=== PATIENT | male | born 1935 | race Caucasian/White ===

== ENCOUNTER 2018-05-23 12:03 | Inpatient (IN) ==
[2018-05-23 12:43] LABS: Baso # (Auto) 0.1 th/mm3 (0.0-0.2); Baso % (Auto) 0.5 % (0.0-2.0); Eos # (Auto) 0.1 th/mm3 (0.0-0.4); Eos % (Auto) 0.3 % (0.0-4.0); Hematocrit 44.6 % (39.0-51.0); Hemoglobin 14.6 gm/dL (13.0-17.0); Lymph # (Auto) 14.8 th/mm3 (1.0-4.8); Lymph % (Auto) 66.2 % (9.0-44.0); Mean Corpuscular HGB Conc 32.6 % (32.0-36.0); Mean Corpuscular Hemoglobin 28.9 pg (27.0-34.0); Mean Corpuscular Volume 88.7 fL (80.0-100.0); Mean Platelet Volume 8.6 fL (7.0-11.0); Mono # (Auto) 0.8 th/mm3 (0.0-0.9); Mono % (Auto) 3.4 % (0.0-8.0); Neut # (Auto) 6.6 th/mm3 (1.8-7.7); Neut % (Auto) 29.6 % (16.0-70.0); Platelet Count 226 th/mm3 (150-450); Red Blood Count 5.03 mil/mm3 (4.50-5.90); Red Cell Distribution Width 13.7 % (11.6-17.2); White Blood Count 22.4 th/mm3 (4.0-11.0)
[2018-05-23 12:58] LABS: Alanine Aminotransferase 29 U/L (12-78); Albumin 4.2 g/dL (3.4-5.0); Anion Gap 8 meq/L (5-15); Aspartate Aminotransferase 21 U/L (15-37); Blood Urea Nitrogen 15 mg/dL (7-18); Calcium 9.2 mg/dL (8.5-10.1); Carbon Dioxide 26.3 meq/L (21.0-32.0); Chloride 109 meq/L (98-107); Glomerular Filtration Rate 57 mL/min (>89); Glucose,Random 122 mg/dL (74-106); Potassium 4.2 meq/L (3.5-5.1); Sodium 143 meq/L (136-145)
[2018-05-23 13:09] LABS: Alkaline Phosphatase 73 U/L (45-117); Total Protein 7.1 g/dL (6.4-8.2)
[2018-05-23 13:14] LABS: Creatine Kinase 91 U/L (39-308)
[2018-05-23 13:15] LABS: Lymphocytes 76 % (9-44); Monocytes 2 % (0-8); Platelet Estimate Normal (Normal); Platelet Morphology Normal (Normal)
--- NOTE | 2018-05-23 13:26 | ED ---
HPI General Chief Complaint: Psychiatric Symptoms Stated Complaint: Psych Screen Time Seen by Provider: 05/23/18 12:30 Source: patient and police Mode of arrival: ambulatory Limitations: other ([place]'s dementia) History of Present Illness HPI Narrative: Patient is an 82-year-old male presenting to the emergency department under Hopper act for psychiatric evaluation. Patient left his assisted living memory unit this morning walked approximately 4 miles to his home that he used to live in with his . Patient stated that he was fed up with the assisted living, he states that although they give him good care he does not want to be there. He then admitted to police liaison that he did not want to live like that. Patient denies any suicidality now, he denies any previous suicide attempt. Patient has no physical complaints on arrival. MD complaint: suicidal ideation Onset (ago): hour(s) Duration: resolved prior to arrival Associated symptoms: denies other symptoms Related Data Allergies Allergy/AdvReac Type Severity Reaction Status Date / Time No Known Allergies Allergy Unverified 05/23/18 12:13 Review of Systems Except as stated in HPI: all other systems reviewed are negative PMFSH History History Provided By: Patient Medical History Medical History Alzheimer's dementia (Chronic) Social History Social History Substance History: Unable to Obtain Second Hand Smoke Exposure: No Smoking Status: Cognitive impairment How Often Do You Have a Drink Containing Alcohol: Unable to Obtain (Per patient 's daughter he may have a beer or 2 daily) Recent Travel in [facility] within the Last 8 Weeks: No Recent Out of Country Travel within the Last 8 Weeks: No Exam Narrative Exam Narrative: GENERAL: Well-developed, well-nourished, alert elderly gentleman. Presenting in no acute distress. SKIN: Focused skin assessment warm/dry. HEAD: Atraumatic. Normocephalic. EYES: Pupils equal and round. No scleral icterus. No injection or drainage. ENT: No nasal bleeding or discharge. Mucous membranes pink and moist. NECK: Trachea midline. No JVD. CARDIOVASCULAR: Mildly tachycardic. No murmur appreciated. RESPIRATORY: No accessory muscle use. Clear to auscultation. Breath sounds equal bilaterally. GASTROINTESTINAL: Abdomen soft, non-tender, nondistended. Hepatic and splenic margins not palpable. MUSCULOSKELETAL: No obvious deformities. No clubbing. No cyanosis. No edema. NEUROLOGICAL: Awake and alert, oriented 3. No obvious cranial nerve deficits. Motor grossly within normal limits. Normal speech. PSYCHIATRIC: Appropriate mood and affect; insight and judgment impaired. Course Initial Documented Vital Signs Temperature 99 F 05/23/18 14:26 Pulse Rate 92 H 05/23/18 14:26 Respiratory Rate 16 05/23/18 14:26 Blood Pressure 157/62 H 05/23/18 14:26 Pulse Oximetry 99 05/23/18 14:26 Last Documented Vital Signs Temperature 98.7 F 05/24/18 06:29 Pulse Rate 87 05/24/18 06:29 Respiratory Rate 18 05/24/18 06:29 Blood Pressure 151/80 H 05/24/18 06:29 Pulse Oximetry 95 05/24/18 06:29 Medical Decision Making MDM Narrative Medical decision making narrative: Patient is an 82-year-old male under Hopper act for psychiatric eval. secondary to making suicidal statement. Mental health screening discussed with the patient. Psychiatric screen ordered. Urinalysis is consistent with a urinary tract infection, patient be treated with Macrobid, urine culture is pending. Patient's white blood cell count of 22.4 he is afebrile. Patient was given first dose of antibiotics now. Patient is medically cleared for psychiatric evaluation. Differential Diagnosis Differential Diagnosis: Dementia versus mood disorder versus UTI versus metabolic abnormality versus other Lab Data Result diagrams: 05/23/18 12:15 05/24/18 10:00 Lab Results 05/23/18 05/23/18 05/23/18 Range/Units 12:15 12:15 15:54 WBC 22.4 H (4.0-11.0) th/mm3 RBC 5.03 (4.50-5.90) mil/mm3 Hgb 14.6 (13.0-17.0) gm/dL Hct 44.6 (39.0-51.0) % MCV 88.7 (80.0-100.0) fL MCH 28.9 (27.0-34.0) pg MCHC 32.6 (32.0-36.0) % RDW 13.7 (11.6-17.2) % Plt Count 226 (150-450) th/mm3 MPV 8.6 (7.0-11.0) fL Prelim Diff (Auto) Slide review pending Neut % (Auto) 29.6 (16.0-70.0) % Lymph % (Auto) 66.2 H (9.0-44.0) % Desha % (Auto) 3.4 (0.0-8.0) % Eos % (Auto) 0.3 (0.0-4.0) % Baso % (Auto) 0.5 (0.0-2.0) % Neut # (Auto) 6.6 (1.8-7.7) th/mm3 Lymph # (Auto) 14.8 H (1.0-4.8) th/mm3 Desha # (Auto) 0.8 (0.0-0.9) th/mm3 Eos # (Auto) 0.1 (0.0-0.4) th/mm3 Baso # (Auto) 0.1 (0.0-0.2) th/mm3 WBC Differential Manual diff final Seg Neuts % (Manual) 19 (16-70) % Band Neuts % (Manual) 3 (0-6) % Lymphocytes % (Manual) 76 H (9-44) % Monocytes % (Manual) 2 (0-8) % Abs Neuts (Manual) 4.9 (1.8-7.7) th/mm3 Differential Comment . Platelet Estimate Normal (Normal) Platelet Morphology Normal (Normal) Hemoglobin A (95.8-98.0) % Hemoglobin A2 (2.0-3.3) % Hemoglobin F () (0.0-0.9) % Hgb A2/F Interpret Hemoglobin Variant 2 Hemoglobin Variant 3 Hemoglobin Variant % Sodium 143 (136-145) meq/L Potassium 4.2 (3.5-5.1) meq/L Chloride 109 H (98-107) meq/L Carbon Dioxide 26.3 (21.0-32.0) meq/L Anion Gap 8 (5-15) meq/L BUN 15 (7-18) mg/dL Creatinine 1.23 (0.60-1.30) mg/dL Estimated GFR 57 L (>89) mL/min Random Glucose 122 H (74-106) mg/dL Calcium 9.2 (8.5-10.1) mg/dL Total Bilirubin 0.8 (0.2-1.0) mg/dL AST 21 (15-37) U/L ALT 29 (12-78) U/L Alkaline Phosphatase 73 (45-117) U/L Total Creatine Kinase 91 (39-308) U/L Total Protein 7.1 (6.4-8.2) g/dL Albumin 4.2 (3.4-5.0) g/dL Triglycerides (42-150) mg/dL Cholesterol (120-200) mg/dL LDL Cholesterol, Calc (0-99) mg/dL HDL Cholesterol (40.0-60.0) mg/dL Cholesterol/HDL Ratio Ratio TSH 3.240 (0.358-3.740) uIU/mL Urine Color Kimberly (Yellw/Straw) Urine Clarity Cloudy H (Clear) Urine pH 5.0 (5.0-8.5) Ur Specific [place] 1.025 (1.002-1.035) Urine Protein 100 H (Neg-Trace) mg/dL Urine Glucose (UA) 50 (Negative) mg/dL Urine Ketones Trace (Negative) mg/dL Urine Occult Blood Small H (Negative) Urine Nitrate Negative (Negative) Urine Bilirubin Negative (Negative) Urine Urobilinogen 2.0 H (Less than 2) mg/dL Ur Leukocyte Esterase Negative (Negative) Urine RBC 22 H (0-3) /hpf Urine WBC 10 H (0-5) /hpf Amorphous Sediment Few H (None) /hpf Urine Bacteria Few H (None) /hpf Hyaline Casts 86 (0-3) /lpf Urine Mucus Many H (Occasional) /lpf Micro UA Comment Culture indicated Urine Culture Comments Culture indicated 05/24/18 05/24/18 Range/Units 10:00 10:00 WBC (4.0-11.0) th/mm3 RBC (4.50-5.90) mil/mm3 Hgb (13.0-17.0) gm/dL Hct (39.0-51.0) % MCV (80.0-100.0) fL MCH (27.0-34.0) pg MCHC (32.0-36.0) % RDW (11.6-17.2) % Plt Count (150-450) th/mm3 MPV (7.0-11.0) fL Prelim Diff (Auto) Neut % (Auto) (16.0-70.0) % Lymph % (Auto) (9.0-44.0) % Desha % (Auto) (0.0-8.0) % Eos % (Auto) (0.0-4.0) % Baso % (Auto) (0.0-2.0) % Neut # (Auto) (1.8-7.7) th/mm3 Lymph # (Auto) (1.0-4.8) th/mm3 Desha # (Auto) (0.0-0.9) th/mm3 Eos # (Auto) (0.0-0.4) th/mm3 Baso # (Auto) (0.0-0.2) th/mm3 WBC Differential Seg Neuts % (Manual) (16-70) % Band Neuts % (Manual) (0-6) % Lymphocytes % (Manual) (9-44) % Monocytes % (Manual) (0-8) % Abs Neuts (Manual) (1.8-7.7) th/mm3 Differential Comment Platelet Estimate (Normal) Platelet Morphology (Normal) Hemoglobin A 97.3 (95.8-98.0) % Hemoglobin A2 2.7 (2.0-3.3) % Hemoglobin F () 0.0 (0.0-0.9) % Hgb A2/F Interpret . Hemoglobin Variant 2 Not Reportable Hemoglobin Variant 3 Not Reportable Hemoglobin Variant % Not Reportable Sodium 141 (136-145) meq/L Potassium 4.2 (3.5-5.1) meq/L Chloride 107 (98-107) meq/L Carbon Dioxide 27.1 (21.0-32.0) meq/L Anion Gap 7 (5-15) meq/L BUN 22 H (7-18) mg/dL Creatinine 0.97 (0.60-1.30) mg/dL Estimated GFR 74 L (>89) mL/min Random Glucose 118 H (74-106) mg/dL Calcium 9.0 (8.5-10.1) mg/dL Total Bilirubin (0.2-1.0) mg/dL AST (15-37) U/L ALT (12-78) U/L Alkaline Phosphatase (45-117) U/L Total Creatine Kinase (39-308) U/L Total Protein (6.4-8.2) g/dL Albumin (3.4-5.0) g/dL Triglycerides 112 (42-150) mg/dL Cholesterol 166 (120-200) mg/dL LDL Cholesterol, Calc 80 (0-99) mg/dL HDL Cholesterol 64.0 H (40.0-60.0) mg/dL Cholesterol/HDL Ratio 2.59 Ratio TSH (0.358-3.740) uIU/mL Urine Color (Yellw/Straw) Urine Clarity (Clear) Urine pH (5.0-8.5) Ur Specific [place] (1.002-1.035) Urine Protein (Neg-Trace) mg/dL Urine Glucose (UA) (Negative) mg/dL Urine Ketones (Negative) mg/dL Urine Occult Blood (Negative) Urine Nitrate (Negative) Urine Bilirubin (Negative) Urine Urobilinogen (Less than 2) mg/dL Ur Leukocyte Esterase (Negative) Urine RBC (0-3) /hpf Urine WBC (0-5) /hpf Amorphous Sediment (None) /hpf Urine Bacteria (None) /hpf Hyaline Casts (0-3) /lpf Urine Mucus (Occasional) /lpf Micro UA Comment Urine Culture Comments Discharge Plan Discharge Disposition Patient Disposition: 04 ACLF/CUSTODIAL Discharge Condition Condition: Stable Discharge Order Discharge Orders: Discharge Order (Routine); Ordered 05/24/18 Ordered By: Chema Barcenas Discharge Details Anticipated Discharge Date: 05/24/18 Diagnosis: Acute UTI, Medical clearance for psychiatric admission Physicians Team ED Provider: Hayde Milner ED Midlevel Provider: Sadaf Garcia Primary Care Provider: Ashley Mayo Attending Provider: Chema Barcenas Other Providers: Ky Monroe Status ED Status: Left Department Discharge Information Discharge Date/Time: 05/23/18 21:00
[2018-05-23 16:25] LABS: Amorphous Sediment,Urine Few /hpf; Bacteria,Urine Few /hpf; Bilirubin,Urine Negative (Negative); Clarity,Urine Cloudy (Clear); Color,Urine Amber (Yellw/Straw); Glucose,Urine (UA) 50 mg/dL (Negative); Hyaline Casts,Urine 86 /lpf (0-3); Leukocyte Esterase,Urine Negative (Negative); Mucus,Urine Many /lpf (Occasional); Nitrite,Urine Negative (Negative); Specific Gravity,Urine 1.025 (1.002-1.035)
[2018-05-23] MEDS ORDERED: Nitrofurantoin Monohydrate-Macrocrystal 100 MG Capsule PO ONE (16:29)
[2018-05-24] MEDS ORDERED: Aluminum/Magnesium/Simethacone Susp 30 ML UDC PO PRN ×2 (03:58→11:06)
[2018-05-24] MEDS ORDERED: LORazepam 0.5 MG Tablet PO PRN (04:02)
[2018-05-24] MEDS ORDERED: Ciprofloxacin 500 MG Tablet PO SCH (09:00)
--- NOTE | 2018-05-24 11:20 | P.HPPSY ---
Provisional Diagnosis Admission Date: May 23, 2018 20:11 [place] I.: Dementia with behavioral disturbances, Alzheimer disease with late onset Competence Certification of Person's Competence To Provide Express and Informed Consent I have personally examined Sathish Walhs, a person being served at [facility] on, May 24, 2018 1117. Express and informed consent means consent voluntarily given in writing, by a competent person, after sufficient explanation and disclosure of the subject matter involved to enable the person to make a knowing and willful decision without any element of force, fraud, deceit, duress, or other form of constraint or coercion. This person is 18 years of age or older, is not now known to be incompetent to consent to treatment with a guardian advocate, and does not have a health care surrogate or proxy currently making medical treatment decisions. I have found this person to be one of the following: [] Competent to provide express and informed consent, as defined above, for voluntary admission to this facility and is competent to provide express and informed consent for treatment. He/she has the consistent capacity to make well reasoned, willful, and knowing decisions concerning his or her medical or mental health treatment. The person fully and consistently understands the purpose of the admission for examination/placement and is fully capable of personally exercising all rights assured under [place]xxx] Incompetent to provide express and informed consent to voluntary admission , and this is incompetent to provide express and informed consent to treatment. The person must be transferred to involuntary status and a petition for a guardian advocate filed with the Circuit Court. [] Refusing to provide express and informed consent to voluntary admission but is competent to provide express and informed consent for treatment. The person must be discharged or transferred to involuntary status. Form shall be completed within 24 hours of a person's arrival at the receiving facility and filed in the clinical record of each person: 1. Admitted on a voluntary basis 2. Permitted to provide express and informed consent to his/her own treatment 3. Allowed to transfer from involuntary to voluntary status 4. Prior to permitting a person to consent to his or her own treatment after having been previously found incompetent to consent to treatment. History of Present Illness Capacity: Lacks capacity History of Present Illness: Patient is an 82-year-old white male comes for under Hopper act by the [place] [employer] dated 05/23/2018 that 11:39 AM that document reviewed. Essentially states male who has Alzheimer's and left treatment facility when I made contact with him he stated he wanted to tell his chanel because he was going to kill himself he told me he would drown himself in the pond behind his house. Patient seen screen in the ED medically cleared and transferred to 2600. It appears patient was living at home with his of 40+ years. He began to show increased signs of his dementia with behavioral issues to the point where he was transferred to the [facility] about 6 weeks ago with his has been visiting him. He was showing some increased sundowning. Before this encounter patient left the [facility] and walked 2 + mousers family home who became somewhat more obstreperous. His and daughters became concerned calling the police leading to the Hopper act him being here. I have talked with 2 of the daughter whose name is Alysia Walsh at [phone] she confirmed much of the above history. Patient also was diagnosed with urinary tract infection in the ED and placed on Macrobid. There is no past psychiatric history patient drinks 1-2 beers a day is also given that at [facility]. 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 No significant behavioral issues. At the present time patient sitting quietly in his room on 2600 nurse Haylee present throughout session. He is a calm pleasant white male appears about his stated age, he is pleasantly diffusely confused place and situation though he knows it is 2018 minutes April. However there is also some confabulation noted. In any event the daughter states that they have talked with [facility] will be transferring with her father to the memory care unit. We have talked with the [facility] in the memory care unit. They do have a bed available for him today. The family wishes she could be returned to the [facility] as soon as possible. At this time with the patient's urinary tract infection being treated he is showing no behavioral problems with us even when visiting with his 1 daughter who is here. I feel patient can be discharged from here to be taken by Mima to [facility] for placement in their memory care unit with follow-up services through that facility patient's family and daughters are in agreement with this. There we will be no prescription by me there is a prescription for Macrobid 100 mg twice daily 7 days written by the ED physician - Inpatient Certification I certify that the inpatient services were ordered in accordance with Medicare regulations governing the order. This includes certification that hospital inpatient services are reasonable and necessary and in the case of services not specified as inpatient-only under 42 CFR 419.22(n), that they are appropriately provided as inpatient services in accordance to with the 2-midnight benchmark under 43 CFR 412.3(e) I certify that inpatient psychiatric hospital services are medically necessary. Evaluation and treatment and/or diagnostic testing are expected to improve the patient's condition. The patient needs on a daily basis, active treatment furnished directly by or requiring the supervision of inpatient psychiatric facility personnel. Estimated Total Length of Stay (Days): 1 Plans for Post Hospital Care: SNF Review of Systems All other systems reviewed negative except as stated [facility] - History History Provided By: Patient, Family Member - Medical History Medical History: Medical History (Last Reviewed 05/23/18 @ 13:24 by VICKEY Stewart) Alzheimer's dementia - Tobacco History Second Hand Smoke Exposure: No Tobacco Use In Past 30 Days: No Smoking Status: Cognitive impairment - Alcohol History How Often Do You Have a Drink Containing Alcohol: Unable to Obtain (Per patient' s daughter he may have a beer or 2 daily) - Substance Use History Substance History: Unable to Obtain - Travel History Recent Travel in the [place] Within the Last 8 Weeks: No Recent Travel Out of the Country Within the Last 8 Weeks: No - Immunization History Tetanus Immunization: Unable to Assess Hx Influenza Vaccine This Season: Unable to Assess Quality Measures - Psychiatric History Psychological trauma history: Patient denies and verified by family Violence risk to others in the last 6 months: Patient became somewhat verbally aggressive and sundowning Violence risk to self in the last 6 months: Patient made threats to kill himself - Substance Abuse History Drug or alcohol use in the past 12 months: Patient has 1 or 2 beers per day which were also given at [facility] - Patient Strengths Patient's strengths (minimum of 2): Patient verbal cooperative has supportive family Medications and Allergies Active Medications: Active Medications Al Hydrox/Mg Hydrox/Simethicone (Mag-Al Plus Susp Liq) 30 ml PO Q6H PRN PRN Reason: DYSPEPSIA Al Hydroxide/Mg Hydroxide (Milk Of Magnesia Liq) 30 ml PO Q12H PRN PRN Reason: Mild Constipation Ciprofloxacin HCl (Cipro) 500 mg PO Q12HR SANJAY Lorazepam (Ativan Inj) 0.5 mg IM Q12H PRN PRN Reason: MODERATE TO SEVERE ANXIETY Lorazepam (Ativan) 0.5 mg PO Q12H PRN PRN Reason: MODERATE TO SEVERE ANXIETY Nicotine (Habitrol 21 Mg Patch.24 Hr) 1 patch T-DERMAL DAILY SANJAY Patch Removal (Remove Old Patch) 1 each T-DERMAL HS [facility] Allergies Allergy/AdvReac Type Severity Reaction Status Date / Time No Known Allergies Allergy Unverified 05/23/18 12:13 Results - Labs CBC & Chem 7: 05/23/18 12:15 05/24/18 10:00 Labs: Laboratory Results - last 24 hr 05/23/18 05/23/18 05/23/18 12:15 12:15 15:54 WBC 22.4 H RBC 5.03 Hgb 14.6 Hct 44.6 MCV 88.7 MCH 28.9 MCHC 32.6 RDW 13.7 Plt Count 226 MPV 8.6 Prelim Diff (Auto) Slide review pending Neut % (Auto) 29.6 Lymph % (Auto) 66.2 H [place] % (Auto) 3.4 Eos % (Auto) 0.3 Baso % (Auto) 0.5 Neut # (Auto) 6.6 Lymph # (Auto) 14.8 H [place] # (Auto) 0.8 Eos # (Auto) 0.1 Baso # (Auto) 0.1 WBC Differential Manual diff final Seg Neuts % (Manual) 19 Band Neuts % (Manual) 3 Lymphocytes % (Manual) 76 H Monocytes % (Manual) 2 Abs Neuts (Manual) 4.9 Differential Comment . Platelet Estimate Normal Platelet Morphology Normal Sodium 143 Potassium 4.2 Chloride 109 H Carbon Dioxide 26.3 Anion Gap 8 BUN 15 Creatinine 1.23 Estimated GFR 57 L Random Glucose 122 H Calcium 9.2 Total Bilirubin 0.8 AST 21 ALT 29 Alkaline Phosphatase 73 Total Creatine Kinase 91 Total Protein 7.1 Albumin 4.2 TSH 3.240 Urine Color Kimberly Urine Clarity Cloudy H Urine pH 5.0 Ur Specific [place] 1.025 Urine Protein 100 H Urine Glucose (UA) 50 Urine Ketones Trace Urine Occult Blood Small H Urine Nitrate Negative Urine Bilirubin Negative Urine Urobilinogen 2.0 H Ur Leukocyte Esterase Negative Urine RBC 22 H Urine WBC 10 H Amorphous Sediment Few H Urine Bacteria Few H Hyaline Casts 86 Urine Mucus Many H Micro UA Comment Culture indicated Urine Culture Comments Culture indicated Exam Vital signs: Vital Signs 05/23/18 14:26 05/24/18 06:29 Temperature 99 F 98.7 F Pulse Rate 92 H 87 Respiratory Rate 16 18 Blood Pressure 157/62 H 151/80 H Pulse Oximetry 99 95 Intake & Output 05/23/18 05/24/18 05/24/18 18:59 06:59 18:59 Weight 86.183 kg 86.2 kg Other: Weight On Admission 86.2 kg Narrative: Patient seen quietly in his room with staff present as mentioned above he is in no acute distress, he is in no respiratory distress, no complaints of chest pain , no complaints of abdominal pain, patient moving all 4 extremities without difficulty there is some mild word seeking noted 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 Mental Status Examination Appearance: Appropriate Consciousness: Alert Orientation: Person, Date/Time Motor Activity: Normal gait Speech: Unremarkable Language: Adequate Fund of Knowledge: Inadequate Attention and Concentration: Easily distracted Memory: Impaired Mood: Other (Euthymic to mildly dysphoric) Affect: Other (Good range and intensity) Thought Process & Associations: Loose associations Thought Content: Appropriate Hallucination Type: None Delusion Type: None Suicidal Ideation: No Suicidal Plan: No Suicidal Intention: No Homicidal Ideation: No Homicidal Plan: No Homicidal Intention: No Insight: Poor Judgment: Poor Assessment and Plan - Assessment (1) Dementia in other diseases classified elsewhere with behavioral disturbance Code(s): F02.81 - Dementia in other diseases classified elsewhere with behavioral disturbance Status: Acute (2) Alzheimer's disease with late onset Code(s): G30.1 - Alzheimer's disease with late onset; F02.80 - Dementia in other diseases classified elsewhere without behavioral disturbance Status: Acute - Plan Plan: Estimated LOS: [1] days At this time patient does not meet Hopper criteria will lift Hopper. Patient does have appropriate placement and follow-up and supportive family. He was diagnosed with UTI in our ED he is being treated with antibiotics for that at this time. He is otherwise on no behavioral problem denies suicidality homicidality voices or visions we have verified that there is a bed available on the memory care unit at [facility]. Justification for Continued Inpatient Stay: Patient to be discharged today to [facility] Discharge Planning: Patient to be discharged from [facility] Request Healthcare Surrogate/Guardian Advocate?: Yes
[2018-05-24 11:24] LABS: Carbon Dioxide 27.1 meq/L (21.0-32.0); Potassium 4.2 meq/L (3.5-5.1)
[2018-05-24 11:26] LABS: Chol/HDL Ratio 2.59 Ratio
--- NOTE | 2018-05-24 11:55 | P.DSPSY ---
Psychiatry Discharge Summary Inpatient Psychiatric care?: Yes Advance Directives: Yes Mental Health Advance Directive: No Health Care Proxy: No - Admission Admission Date: May 23, 2018 20:11 - Admission Diagnosis (1) Dementia in other diseases classified elsewhere with behavioral disturbance Code(s): F02.81 - Dementia in other diseases classified elsewhere with behavioral disturbance (2) Alzheimer's disease with late onset Code(s): G30.1 - Alzheimer's disease with late onset; F02.80 - Dementia in other diseases classified elsewhere without behavioral disturbance Brief History: Patient is an 82-year-old white male comes for under Hopper act by the [place] [employer] dated 05/23/2018 that 11:39 AM that document reviewed. Essentially states male who has Alzheimer's and left treatment facility when I made contact with him he stated he wanted to tell his chanel because he was going to kill himself he told me he would drown himself in the pond behind his house. Patient seen screen in the ED medically cleared and transferred to 2600. It appears patient was living at home with his of 40+ years. He began to show increased signs of his dementia with behavioral issues to the point where he was transferred to the [facility] about 6 weeks ago with his has been visiting him. He was showing some increased sundowning. Before this encounter patient left the [facility] and walked 2 + mousers family home who became somewhat more obstreperous. His and daughters became concerned calling the police leading to the Hopper act him being here. I have talked with 2 of the daughter whose name is Alysia Walsh at [phone] she confirmed much of the above history. Patient also was diagnosed with urinary tract infection in the ED and placed on Macrobid. There is no past psychiatric history patient drinks 1-2 beers a day is also given that at [facility]. 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 No significant behavioral issues. At the present time patient sitting quietly in his room on 2600 nurse Haylee present throughout session. He is a calm pleasant white male appears about his stated age, he is pleasantly diffusely confused place and situation though he knows it is 2015April. However there is also some confabulation noted. In any event the daughter states that they have talked with [facility] will be transferring with her father to the memory care unit. We have talked with the [facility] in the memory care unit. They do have a bed available for him today. The family wishes she could be returned to the [facility] as soon as possible. At this time with the patient's urinary tract infection being treated he is showing no behavioral problems with us even when visiting with his 1 daughter who is here. I feel patient can be discharged from here to be taken by Mima to [facility] for placement in their memory care unit with follow-up services through that facility patient's family and daughters are in agreement with this. There we will be no prescription by me there is a prescription for Macrobid 100 mg twice daily 7 days written by the ED physician Tobacco Use In Past 30 Days: No How Often Do You Have a Drink Containing Alcohol: Unable to Obtain (Per patient' s daughter he may have a beer or 2 daily) Hospital Course: Please see dictation under brief history patient to be discharged today to [facility] to the memory care unit L faxed to transport Rx Macrobid 7 days follow-up services through that facility. This had been discussed with patient's family and the agree to the above - Discharge Discharge Date: 05/24/18 - Discharge Diagnosis (1) Dementia in other diseases classified elsewhere with behavioral disturbance Diagnosis: Principal Code(s): F02.81 - Dementia in other diseases classified elsewhere with behavioral disturbance Status: Acute (2) Alzheimer's disease with late onset Diagnosis: Principal Code(s): G30.1 - Alzheimer's disease with late onset; F02.80 - Dementia in other diseases classified elsewhere without behavioral disturbance Status: Acute Discharge Disposition: Alf Facility - Discharge Instructions Discharge Diet: Regular Diet Activities You Can Perform: Regular- No Restrictions - Discharge Time > 30 minutes Mental Status Examination Appearance: Appropriate Consciousness: Alert Orientation: Person, Date/Time Motor Activity: Normal gait Speech: Unremarkable Language: Adequate Fund of Knowledge: Inadequate Attention and Concentration: Easily distracted Memory: Impaired Mood: Other (Euthymic to mildly dysphoric) Affect: Other (Good range and intensity) Thought Process & Associations: Loose associations Thought Content: Appropriate Hallucination Type: None Delusion Type: None Suicidal Ideation: No Suicidal Plan: No Suicidal Intention: No Homicidal Ideation: No Homicidal Plan: No Homicidal Intention: No Insight: Poor Judgment: Poor Discharge/Advance Care Plan - Results Vital Signs: Last Vital Signs Temp 98.7 F 05/24/18 06:29 Pulse 87 05/24/18 06:29 Resp 18 05/24/18 06:29 BP 151/80 H 05/24/18 06:29 Pulse Ox 95 05/24/18 06:29 Lab Results: Abnormal Lab Results 05/23/18 05/23/18 05/23/18 12:15 12:15 15:54 WBC 22.4 H RBC 5.03 Hgb 14.6 Hct 44.6 MCV 88.7 MCH 28.9 MCHC 32.6 RDW 13.7 Plt Count 226 MPV 8.6 Prelim Diff (Auto) Slide review pending Neut % (Auto) 29.6 Lymph % (Auto) 66.2 H [place] % (Auto) 3.4 Eos % (Auto) 0.3 Baso % (Auto) 0.5 Neut # (Auto) 6.6 Lymph # (Auto) 14.8 H [place] # (Auto) 0.8 Eos # (Auto) 0.1 Baso # (Auto) 0.1 WBC Differential Manual diff final Seg Neuts % (Manual) 19 Band Neuts % (Manual) 3 Lymphocytes % (Manual) 76 H Monocytes % (Manual) 2 Abs Neuts (Manual) 4.9 Differential Comment . Platelet Estimate Normal Platelet Morphology Normal Sodium 143 Potassium 4.2 Chloride 109 H Carbon Dioxide 26.3 Anion Gap 8 BUN 15 Creatinine 1.23 Estimated GFR 57 L Random Glucose 122 H Calcium 9.2 Total Bilirubin 0.8 AST 21 ALT 29 Alkaline Phosphatase 73 Total Creatine Kinase 91 Total Protein 7.1 Albumin 4.2 Triglycerides Cholesterol LDL Cholesterol, Calc HDL Cholesterol Cholesterol/HDL Ratio TSH 3.240 Urine Color Kimberly Urine Clarity Cloudy H Urine pH 5.0 Ur Specific [place] 1.025 Urine Protein 100 H Urine Glucose (UA) 50 Urine Ketones Trace Urine Occult Blood Small H Urine Nitrate Negative Urine Bilirubin Negative Urine Urobilinogen 2.0 H Ur Leukocyte Esterase Negative Urine RBC 22 H Urine WBC 10 H Amorphous Sediment Few H Urine Bacteria Few H Hyaline Casts 86 Urine Mucus Many H Micro UA Comment Culture indicated Urine Culture Comments Culture indicated 05/24/18 10:00 WBC RBC Hgb Hct MCV MCH MCHC RDW Plt Count MPV Prelim Diff (Auto) Neut % (Auto) Lymph % (Auto) [place] % (Auto) Eos % (Auto) Baso % (Auto) Neut # (Auto) Lymph # (Auto) [place] # (Auto) Eos # (Auto) Baso # (Auto) WBC Differential Seg Neuts % (Manual) Band Neuts % (Manual) Lymphocytes % (Manual) Monocytes % (Manual) Abs Neuts (Manual) Differential Comment Platelet Estimate Platelet Morphology Sodium 141 Potassium 4.2 Chloride 107 Carbon Dioxide 27.1 Anion Gap 7 BUN 22 H Creatinine 0.97 Estimated GFR 74 L Random Glucose 118 H Calcium 9.0 Total Bilirubin AST ALT Alkaline Phosphatase Total Creatine Kinase Total Protein Albumin Triglycerides 112 Cholesterol 166 LDL Cholesterol, Calc 80 HDL Cholesterol 64.0 H Cholesterol/HDL Ratio 2.59 TSH Urine Color Urine Clarity Urine pH Ur Specific [place] Urine Protein Urine Glucose (UA) Urine Ketones Urine Occult Blood Urine Nitrate Urine Bilirubin Urine Urobilinogen Ur Leukocyte Esterase Urine RBC Urine WBC Amorphous Sediment Urine Bacteria Hyaline Casts Urine Mucus Micro UA Comment Urine Culture Comments Laboratory Results Triglycerides 112 mg/dL (42-150) 05/24/18 10:00 Cholesterol 166 mg/dL (120-200) 05/24/18 10:00 LDL Cholesterol, Calc 80 mg/dL (0-99) 05/24/18 10:00 HDL Cholesterol 64.0 mg/dL (40.0-60.0) H 05/24/18 10:00 TSH 3.240 uIU/mL (0.358-3.740) 05/23/18 12:15 Urine Culture Comments Culture indicated 05/23/18 15:54 Summary of Procedures: None done Pending Results: None - Medications Number of antipsychotic medications at discharge: 0 - Discharge Care Plan Goals to Promote Your Health: * To prevent worsening of your condition and complications * To maintain your health at the optimal level Directions to Meet Your Goals: Take your medications as prescribed Follow your dietary instruction Follow activity as directed Keep your appointments as scheduled Take your immunizations and boosters as scheduled If your symptoms worsen call your PCP, if no PCP go to Urgent Care Center or Emergency Room For 18/05 questions related to your inpatient stay or results of tests pending at discharge, please contact Dr. Chema Barcenas MD at Smoking is Dangerous to Your Health. Avoid second hand smoking
== END 2018-05-24 14:40 ==
LOC: NEPD 12:03 → NEDA 20:11 → H260 21:00
PROVIDERS: ADMIT Psychiatry & Neurology Psychiatry; ATTEND Psychiatry & Neurology Psychiatry
DX: F05 Delirium due to known physiological condition; R45.851 Suicidal ideations; G30.1 Alzheimer's disease with late onset; N39.0 Urinary tract infection, site not specified; F02.81 Dementia in other diseases classified elsewhere, unspecified severity, with behavioral disturbance